=== PATIENT | female | born 1930 | race Caucasian/White ===

== ENCOUNTER 2017-08-17 13:25 | Emergency (ER) | payer OTHER, MEDICARE ==
[2017-08-17 13:31] VITALS: BP 154/93; PULSE 60; TEMP 97.7; BMI 24.5
--- NOTE | 2017-08-17 14:59 | PDOC ---
History of Present Illness - General Chief Complaint: Injury Stated Complaint: FALL/ RT ARM INJURY Time Seen by Provider: 08/17/17 13:49 History Source: Patient Exam Limitations: No Limitations - History of Present Illness Initial Comments: Chief complaint: Wrist injury Patient is a 87-year-old female with a history of A. fib, and elevated cholesterol she tripped and fell this morning over a log, injuring her right wrist. No head injury and no other complaints. Patient is ambulatory. Patient states she had her INR done a few days ago was 1.9. Patient is ambulatory without any difficulty. GENERAL/CONSTITUTIONAL: No fever, weakness. dizziness HEAD, EYES, EARS, NOSE AND THROAT: No change in vision. No ear pain or discharge. No sore throat. CARDIOVASCULAR: No chest pain RESPIRATORY: No shortness of breath or cough GASTROINTESTINAL: No pain, nausea, vomiting, diarrhea or constipation GENITOURINARY: No dysuria MUSCULOSKELETAL: No neck or back pain, +wrist pain SKIN: No rash NEUROLOGIC: No headache, vertigo, loss of consciousness, or loss of sensation. GENERAL: The patient is awake, alert, and fully oriented, in no acute distress. HEAD: Normal with no signs of trauma. EYES: Pupils equal, round and reactive to light, sclera anicteric, conjunctiva clear. ENT: pharynx: no erythema, no exudate, uvula midline NECK: supple CHEST: clear, nontender, rr ABD: soft, nontender EXTREMITIES: + Mild right wrist tenderness and swelling, able to flex and extend , mild tenderness across the proximal dorsum of the hand, fingers full range of motion, no tenderness, neurovascular intact. Rest of the extremities, normal range of motion, no edema. NEUROLOGICAL: Normal speech, normal gait. SKIN: Warm, Dry 08/17/17 14:54 Past History - Past Medical History Allergies/Adverse Reactions: Allergies Allergy/AdvReac Type Severity Reaction Status Date / Time No Known Allergies Allergy Verified 08/17/17 13:31 Home Medications: Ambulatory Orders Metoprolol Succinate [Toprol Xl -] 25 mg PO BID 01/14/16 Warfarin Na [Coumadin] 3.5 mg PO ASDIR 01/14/16 Atorvastatin Ca [Lipitor] 10 mg PO HS 02/18/16 Cancer: Yes (UTERINE) Cardiac Disorders: Yes (A FIB) COPD: No - Suicide/Smoking/Psychosocial Hx Smoking History: Former smoker Have you smoked in the past 12 months: No If you are a former smoker, when did you quit?: 54 YRS AGO Information on smoking cessation initiated: No Hx Alcohol Use: Yes (SOCIAL) Drug/Substance Use Hx: No Substance Use Type: None *Physical Exam - Vital Signs Last Vital Signs Temp Pulse Resp BP Pulse Ox 97.7 F 60 20 154/93 98 08/17/17 13:27 08/17/17 13:27 08/17/17 13:27 08/17/17 13:27 08/17/17 13:27 Procedures - Splinting Splint Location: Right: Hand, Wrist Pre-Proc Neuro Vasc Exam: normal Pre-Made Type: velcro Post-Proc Neuro Vasc Exam: normal ED Treatment Course - RADIOLOGY Radiology Studies Ordered: Category Date Time Status WRIST W/HAND-RIGHT* [RAD] Stat Radiology 08/17/17 14:17 Completed Medical Decision Making - Medical Decision Making 87-year-old female, well-appearing, ambulatory with her son who tripped and fell over a log injuring her right wrist. On Coumadin but INR a few days ago was 1.9. Wrist has not really swollen up and is not ecchymotic. No head injury and no complaints related to anything else. Will get x-ray of the wrist and reassess. 08/17/17 15:02 X-ray does fracture of the base of the fifth metatarsal, will splint and follow- up with orthopedist, will be instructed not to take any Aleve or Motrin. But only to take Tylenol. *DC/Admit/Observation/Transfer Diagnosis at time of Disposition: Fracture of fifth metacarpal bone Qualifiers: Encounter type: initial encounter Fracture type: closed Metacarpal location: base Fracture alignment: displaced Laterality: right Qualified Code(s): S62.316A - Displaced fracture of base of fifth metacarpal bone, right hand, initial encounter for closed fracture - Discharge Dispostion Disposition: HOME Condition at time of disposition: Stable Admit: No - Referrals Referrals: Alena Medina MD [Primary Care Provider] - Con Yancey MD [Staff Physician] - - Patient Instructions Printed Discharge Instructions: DI for a Hand Fracture Additional Instructions: Elevate, wear splint You can apply ice for 20 minutes every 2 hours for the next 2 days tylenol 650 mg every 6 hours for pain. Call the orthopedist tomorrow - Post Discharge Activity
== END 2017-08-17 15:12 | disposition home or self-care (01) ==
LOC: JERFT 13:25
PROC: 2W3CX1Z Immobilization of Right Lower Arm using Splint (ICD-10-PCS; principal; 2017-08-17)
DX: S62.316A Displaced fracture of base of fifth metacarpal bone, right hand, initial encounter for closed fracture (principal); W18.39XA Other fall on same level, initial encounter; Y93.89 Activity, other specified; Y92.9 Unspecified place or not applicable; I48.91 Unspecified atrial fibrillation; E78.00 Pure hypercholesterolemia, unspecified
CPT/HCPCS: 29125; 73110-TC-RT; 73130-TC-RT; 99281-25

== ENCOUNTER 2019-08-06 07:15 | Day surgery (SDC) | payer OTHER, MEDICARE ==
[2019-08-05 08:18] VITALS: BMI 25.2
--- NOTE | 2019-08-06 12:37 | EKG ---
Test Reason : Blood Pressure : / mmHG Vent. Rate : 054 BPM Atrial Rate : 054 BPM P-R Int : 150 ms QRS Dur : 080 ms QT Int : 464 ms P-R-T Axes : 059 -40 001 degrees QTc Int : 440 ms SINUS BRADYCARDIA POSSIBLE LEFT ATRIAL ENLARGEMENT LEFT AXIS DEVIATION ABNORMAL ECG WHEN COMPARED WITH ECG OF 18-FEB-2016 11:13, NO SIGNIFICANT CHANGE WAS FOUND Confirmed by NOLBERTO CORDOVA, TRISHA ([id number]) on 08/06/2019 12:37:09 PM Referred By: Confirmed By:TRISHA ARVIZU MD
== END 2019-08-06 08:03 | disposition home or self-care (01) ==
LOC: JASU-ENDO 07:15 → EDSTATUS 16:15
PROVIDERS: ATTEND Internal Medicine Cardiovascular Disease
DX: Z53.8 Procedure and treatment not carried out for other reasons (principal)
CPT/HCPCS: 93005; 93010